=== PATIENT | male | born 1930 | race Caucasian/White ===

== ENCOUNTER 2019-05-12 11:08 | Emergency (ER) | payer MEDICARE, BC ==
[~2019-05-12] VITALS: Ht 175.3 cm; Wt 86.2 kg
[2019-05-12 11:17] VITALS: BP 137/82
--- NOTE | 2019-05-12 11:29 | NUR ---
Patient discharged to home in stable condition. Written and verbal after care instructions given. Patient verbalizes understanding of instruction.
== END 2019-05-12 12:03 | disposition home or self-care (01) ==
LOC: ER 11:15
DX: S50.01XA Contusion of right elbow, initial encounter (principal); S70.11XA Contusion of right thigh, initial encounter; I10 Essential (primary) hypertension; K21.9 Gastro-esophageal reflux disease without esophagitis; N40.0 Benign prostatic hyperplasia without lower urinary tract symptoms; F32.9 Major depressive disorder, single episode, unspecified; Z95.0 Presence of cardiac pacemaker; Z88.1 Allergy status to other antibiotic agents; W22.8XXA Striking against or struck by other objects, initial encounter; Y93.89 Activity, other specified; Y92.89 Other specified places as the place of occurrence of the external cause; Y99.8 Other external cause status